=== PATIENT | male | born 1940 | race Caucasian/White ===

== ENCOUNTER → 2019-12-15 | Outpatient (CLI) | payer MEDICARE, OTHER ==
[~2019-12-15] MED LIST: ASPIRIN EC325 M1; CIPROFLOXACIN500 M1 PO; LIPITOR10 MG
--- NOTE | 2019-12-15 11:23 | 2DMMODE ---
[place] [address] 2 D/M-MODE ECHOCARDIOGRAM Name: AREN EMERSON Room: [facility]#: [id number] Admission: 12/15/19 Attend Phys: Froylan Lopez, Discharge: Date of : 40 Date of Service: 12/15/19 1122 Report #: [id number] THIS REPORT FOR: cc: Kaycee Lozano MD, Jayne MD Blick,Arnav Voss MD [facility] ~ THIS REPORT FOR: //name// APPROVED REPORT Study performed: 12/15/2019 08:57:44 EXAM: Comprehensive 2D, Doppler, and color-flow Echocardiogram Patient Location: Out-Patient BSA: 1.93 HR: 78 bpm BP: 130/60 mmHg Other Information Study Quality: Good Indications Aortic Valve Disease 2D Dimensions IVSd: 11.21 (7-11mm) LVOT Diam: 20.54 (18-24mm) LVDd: 47.72 mm PWd: 11.21 (7-11mm) Ascending Ao: 28.83 (22-36mm) LVDs: 33.32 (25-40mm) Aortic Root: 28.80 mm Volumes Left Atrial Volume (Systole) LA ESV Index: 21.90 mL/m2 Aortic Valve AoV Peak Toby.: 2.59 m/s AO Peak Gr.: 26.86 mmHg LVOT Max P.35 mmHg AO Mean Gr.: 14.89 mmHg LVOT Mean P.06 mmHg LVOT Max V: 1.04 m/s AO V2 VTI: 58.07 cm LVOT Mean V: 0.66 m/s FAISAL (VTI): 1.28 cm2 LVOT V1 VTI: 22.35 [place] [address] 2 D/M-MODE ECHOCARDIOGRAM Name: AREN EMERSON Room: [facility]#: [id number] Admission: 12/15/19 Attend Phys: Froylan Lopez, Discharge: Date of : 40 Date of Service: 12/15/19 1122 Report #: [id number] Mitral Valve E/A Ratio: 0.79 MV Decel. Time: 265.21 ms MV E Max Toby.: 0.66 m/s MV PHT: 76.91 ms MVA (PHT): 2.86 cm2 TDI E/Lateral E': 6.00 E/Medial E': 9.43 Medial E' Toby.: 0.07 m/s Lateral E' Toby.: 0.11 m/s Pulmonary Valve PV Peak Toby.: 1.33 m/s PV Peak Gr.: 7.03 mmHg Tricuspid Valve RAP Estimate: 5.00 mmHg TR Peak Gr.: 25.03 mmHg RVSP: 30.03 mmHg PA Pressure: 30.03 mmHg Left Ventricle The left ventricle is normal size. There is global hypokinesis of the left ventricle. Mild concentric left ventricular hypertrophy. Left ventricular systolic function is borderline. LVEF is 45-50%. Grade I - abnormal relaxation pattern. Right Ventricle The right ventricle is normal size. The right ventricular systolic function is normal. Atria The left atrium size is normal. The right atrium size is normal. Aortic Valve Aortic valve is mildly calcified. Trace aortic regurgitation. Mild aortic stenosis. Mitral Valve The mitral valve is normal in structure. Mild mitral regurgitation. No evidence of mitral valve stenosis. Tricuspid Valve The tricuspid valve is normal in structure. [place] [address] 2 D/M-MODE ECHOCARDIOGRAM Name: AREN EMERSON Room: [facility]#: [id number] Admission: 12/15/19 Attend Phys: Froylan Lopez, Discharge: Date of : 40 Date of Service: 12/15/19 1122 Report #: [id number] Pulmonic Valve The pulmonary valve is normal in structure. trace pulmonic regurgitation. Great Vessels The aortic root is normal in size. IVC is normal in size and collapses >50% with inspiration. Pericardium There is no pericardial effusion. <Conclusion> Mild concentric left ventricular hypertrophy. LVEF is 45-50%. Mild aortic stenosis. Mild mitral regurgitation. <ELECTRONICALLY SIGNED> By: Arnav Aleman MD, FACC 12/15/19 112 21 21 Arnav Aleman MD, FACC /INF
--- NOTE | 2019-12-15 18:32 | CARDNUC ---
[place] [address] CARDIAC NUCLEAR IMAGING REPORT Name: AREN EMERSON Room: [facility]#: [id number] Admission: 12/15/19 Attend Phys: Froylan Lopez, Discharge: Date of : 40 Date of Service: 12/15/19 1831 Report #: [id number] THIS REPORT FOR: cc: Kaycee Lozano MD, Jayne MD Biggs, F. Douglas MD [facility] ~ THIS REPORT FOR: //name// APPROVED REPORT Imaging Protocol: Rest Tc-99m/Stress Tc-99m 1 day Study performed: 12/15/2019 09:45:00 Indication: Dyspnea, Bradycardia, Bigeminy, Dizziness. Patient Location: Out-Patient Stress Tech: Brea Glover Stress Nurse: Mariam Cabrera RN NM Tech:JAY Montalvo Ht: 5 ft 10 in Wt: 180 lbs BSA: 2.00 m2 BMI: 25.82 Medical History Medical History: CAD s/p CABG, Aortic Stenosis, Bradycardia, PVC's, Bigeminy, Dizziness, Dyspnea, Fatigue, Former Smoker, Hyperlipidemia, SOB, Valvular heart disease, Weakness. Medications: ASA 81 Mg, Atorvastatin. Allergies: No known drug allergies Cardiac Risk Factors: Age, FHX of CAD, Hyperlipidemia, SOB, Past Smoker, Bigeminy, Aortic Stenosis, Bradycardia, PVC's, HX CABG. Previous Cardiac Procedures: CABG Pretest Chest Pain Characteristics: No chest pain Exercise History: Sedentary Physical Disabilities: Bigeminy, Murmur, generalized weakness/fatigue. Meds Held (24 hrs): None Resting Data Rest SPECT myocardial perfusion imaging was performed in supine position 30 minutes following the intravenous injection of 11.2 mCi of Tc-99m Sestamibi. Time of rest injection: 1000 Date: 12/15/2019 The images were gated to evaluate regional [place] [address] CARDIAC NUCLEAR IMAGING REPORT Name: AREN EMERSON Ricky Room: [facility]#: [id number] Admission: 12/15/19 Attend Phys: Froylan Lopez, Discharge: Date of : 40 Date of Service: 12/15/19 1831 Report #: [id number] left ventricular ejection fraction. Administration Route: IV Administration Site: Right AC Pharmacologic Stress Pharmacologic stress test was performed by injecting Regadenoson 0.4 mg IV push over 10-15 seconds immediately followed by the intravenous injection of 34.2 mCi of Tc-99m Sestamibi. Time of stress injection: 1135 Date: 12/15/2019 Administration Route: IV Administration Site: Right AC Gated Stress SPECT was performed 40 minutes after stress injection. The images were gated to evaluate regional wall motion and calculate left ventricular ejection fraction. Prone imaging was performed. Stress Test Details Stress Test: Pharmacologic stress testing performed using 0.4 mg of regadenoson per 5 mL given IV over 10 seconds. Reason for pharmacologic stress test: Murmur, generalized weakness/fatigue, dizziness.. HR Max Heart Rate (APMHR): 141 bpm Resting HR: 61 bpm Target HR (85% APMHR): 119 bpm Max HR Achieved: 92 bpm % of APMHR: 65 Recovery HR: 76 bpm HR response to stress: Normal HR response to stress BP Resting BP: 139/89 mmHg Max BP: 114/54 mmHg Recovery BP: 148/68 mmHg BP response to stress: Normal blood pressure response to stress. ECG Resting ECG: Sinus Rhythm with ventricular bigeminy Stress ECG: Sinus Rhythm with ventricular bigeminy ST Change: None Maximum ST Deviation: 0 mm Arrhythmia: VPC's Recovery ECG: sinus rhythm with ventricular bigeminy Recovery ST Change: None Recovery ST Deviation: 0 mm Recovery Arrhythmia: [place] [address] CARDIAC NUCLEAR IMAGING REPORT Name: AREN EMERSON Room: [facility]#: [id number] Admission: 12/15/19 Attend Phys: Froylan Lopez, Discharge: Date of : 40 Date of Service: 12/15/19 1831 Report #: [id number] Clinical Reason for Termination: Completed protocol Stress Symptoms: Chest Pressure 2/10, leg fatigue, SOA, Head Pressure, Nausea, Neck Stiffness. Exercise duration: 00 min 00 sec Exercise capacity: 1.00 METs Nurse Comments A 79 year old male presented for a sitting Lexiscan r/t increased fatigue, dyspnea, bradycardia, bigeminy and dizziness. Test well tolerated. Recovery unremarkable with PO caffeine, effective. Patient was escorted by staff to Nuclear Medicine for imaging. Patient was stable and stated he felt good at that time. Stress ECG Conclusion Normal hemodynamic response to pharmacologic stress. Non-diagnostic pharmacologic stress due to failure to attain target HR. Study Quality Study: Good Artifact: No artifact No artifact Lung Uptake: Normal Study Data At rest, the left ventricular ejection fraction was 62%.. Post stress, the left ventricular ejection was 49%.. SSS: 11 SRS: 8 SDS: 3 TID = 1.11. Perfusion The resting study demonstrates a small mild lateral basilar defect. The post stress images demonstrates a moderate in size and mild intensity lateral defect is small in size and mildly severe intensity septal defect and a small mild inferior defect. The prone images demonstrate a small moderate to moderately severe septal defect. These images demonstrate a small moderate to moderately severe area of septal ischemia. Images were reviewed using [employer] E[employer]t [employer] App. Wall Motion Normal left ventricular wall motion. Note however that the left echo ejection fraction did drop following stress. [address] [address] CARDIAC NUCLEAR IMAGING REPORT Name: KIAREN W Room: [facility] JONATAN Boyer#: [id number] Admission: 12/15/19 Attend Phys: Froylan Lopez, Discharge: Date of : 40 Date of Service: 12/15/19 1831 Report #: [id number] Nuclear Conclusion ECG Findings: non-diagnostic Clinical Findings: equivocal Nuclear Findings: positive for ischemia Exercise Capacity: not assessed Left Ventricular Function: normal Risk Study: moderate The Lexiscan Cardiolite stress test demonstrates a small area of moderate to moderately severe septal ischemia. Additionally the left echo ejection fraction dropped following stress significantly. <Conclusion> Normal hemodynamic response to pharmacologic stress. Non-diagnostic pharmacologic stress due to failure to attain target HR. <ELECTRONICALLY SIGNED> By: Debora Jaramillo MD, FACC 12/15/191830 30 30 Debora Jaramillo MD, FACC /INF
== END ==
LOC: M.CRD 11-18 14:26 → M.NUC 12-23 08:00
DX: I08.3 Combined rheumatic disorders of mitral, aortic and tricuspid valves (principal); I25.10 Atherosclerotic heart disease of native coronary artery without angina pectoris; E78.5 Hyperlipidemia, unspecified; Z87.891 Personal history of nicotine dependence; Z79.899 Other long term (current) drug therapy; Z88.8 Allergy status to other drugs, medicaments and biological substances

== ENCOUNTER 2019-12-26 09:36 | Inpatient (IN) | payer MEDICARE, OTHER ==
[2019-12-26] VITALS (16 sets, daily range): BP systolic 93–148; BP diastolic 50–90
[~2019-12-26] VITALS: Ht 175.3 cm; Wt 73.5 kg
[~2019-12-26 09:36] MED LIST changes: -ASPIRIN EC325 M1; +ASPIRIN EC325 M1 PO; -LIPITOR10 MG; +LIPITOR10 MG PO
[2019-12-26] MEDS ORDERED: ZANTAC 150MG T150 M1 PO (09:45)
[2019-12-26 10:03] LABS: ABSOLUTE BASOPHILS 0.1 thou/uL (0.0-0.2); ABSOLUTE EOSINOPHILS 0.1 thou/uL (0.0-0.7); ABSOLUTE MONOCYTES 0.4 thou/uL (0.0-1.2); ABSOLUTE NEUTROPHILS 3.8 thou/uL (1.6-8.1); BASOPHILS 1.3 %; EOSINOPHILS 1.5 %; HEMATOCRIT 44.5 % (42.0-52.0); HEMOGLOBIN 15.7 gm/dL (14.0-18.0); LYMPHOCYTES 19.1 %; MCH 34.4 pg (26.0-34.0); MCHC 35.2 g/dL (28.0-37.0); MCV 97.7 fL (80.0-100.0); MONOCYTES 7.5 %; MPV 8.1 fl. (7.2-11.1); NUCLEATED RBCS 0 /100WBC; PLATELET COUNT* 144 thou/uL (150-400); POLYS 70.6 %; RBC 4.55 mil/uL (4.50-6.00); RDW-CV 12.5 % (10.5-14.5); WBC 5.4 thou/uL (4.0-11.0)
[2019-12-26 10:11] LABS: CALCIUM 8.5 mg/dL (8.5-10.1); CREATININE 0.9 mg/dL (0.6-1.3); POTASSIUM 4.3 mmol/L (3.5-5.1)
[2019-12-26 10:14] LABS: PROTIME 10.7 Seconds (9.20-11.50)
[2019-12-26 10:23] LABS: ALBUMIN 3.5 g/dL (3.4-5.0); TOTAL BILIRUBIN 0.7 mg/dL (<0.1-1.0); TOTAL PROTEIN 6.3 g/dL (6.4-8.2)
[2019-12-27] VITALS (15 sets, daily range): BP systolic 99–135; BP diastolic 27–63
[2019-12-27] MEDS ORDERED: LOPERAMIDE 2 MG2 M1 PO (21:46)
[2019-12-28] VITALS: BP 132/68
[2019-12-28 04:00] VITALS: BP 113/77
[2019-12-28 06:25] LABS: CALCIUM 8.3 mg/dL (8.5-10.1); CREATININE 1.2 mg/dL (0.6-1.3); MAGNESIUM 2.2 mg/dL (1.8-2.4); POTASSIUM 4.3 mmol/L (3.5-5.1)
[2019-12-28 12:00] VITALS: BP 146/56
[2019-12-28 12:22] LABS: APTT 23.7 Seconds (25.0-31.3); PROTIME 10.6 Seconds (9.20-11.50)
[2019-12-28 12:25] LABS: ANION GAP 8 mmol/L (7-16); BUN 19 mg/dL (7-18); CALCIUM 8.2 mg/dL (8.5-10.1); CHLORIDE 106 mmol/L (98-107); CHOLESTEROL 161 mg/dL (<200); CO2 26 mmol/L (21-32); CREATININE 1.2 mg/dL (0.6-1.3); GLUCOSE 110 mg/dL (70-99); HDL CHOLESTEROL 55 mg/dL (>40); LDL CHOLESTEROL 80 mg/dL (<100); POTASSIUM 4.1 mmol/L (3.5-5.1); SODIUM 140 mmol/L (136-145); TC:HDL 2.9 Ratio (Not establshd); TRIGLYCERIDE 131 mg/dL (<150); VLDL 26 mg/dL (<40)
[2019-12-28 13:13] LABS: SERUM ASSESSMENT Clear
[2019-12-28 16:00] VITALS: BP 131/58
[2019-12-29] VITALS (21 sets, daily range): BP systolic 119–184; BP diastolic 50–114
[2019-12-30 00:28] VITALS: BP 134/63
[2019-12-30 05:03] VITALS: BP 109/66
[2019-12-30] MEDS ORDERED: EFFIENT10 MG PO (09:36)
[2019-12-30] MEDS ORDERED: TOPROL XL50 MG PO (09:36)
[2019-12-30 11:09] VITALS: BP 140/96
[2019-12-30] MEDS ORDERED: NITROSTAT0.4 M1 SUBLING (12:01)
--- NOTE | 2020-01-01 11:26 | CARD ---
[address] [address] CARDIAC CATH REPORT Name: KIAREN Ricky Room: [address] IN [facility]#: [id number] Admission: 12/26/19 Attend Phys: Jtet Hogue MD Discharge: 12/30/19 Date of : 40 Report #: [id number] THIS REPORT FOR: //name// cc: Kaycee Lozano MD, Jayne MD ~ THIS REPORT FOR: //name// APPROVED REPORT Study performed: 12/29/2019 09:33:51 Patient Details Patient Status: In-Patient Room #: 214 The patient is a 79 year-old male Event Personnel Froylan Lopez Cocoa Mill Operator, Miguel Brooks Brick Unloader Tender, Nia Veras RN Commercial Construction Superintendent, Jett Duarte SHANK RANDER Scrub, Shirley Galeas RTR Monitor Procedures Performed Art Access - R femoral artery, Left Heart Cath Coronaries, Bypass Grafts, JANEL Revasc Graft Single CIRC, Hemostasis w/ Angioseal Indication Positive stress test Risk Factors Hypercholesterolemia, Hypertension Previous Procedures/Diagnoses Previous CABG Admission/Lab Medications/Medications given during procedure Oxygen Nasal cannula 2 l per min, Lidocaine Subcut 18 ml, Midazolam (Versed) IV 1 mg, Fentanyl IV 25 mcg, Angiomax IV bolus 11 ml, Angiomax Drip IV 26 ml per hr, Nitroglycerin IC 200 mcg, Effient PO 60 mg, Aspirin PO 81 mg Procedure Narrative The patient was brought electively to the Cardiac Catheterization Laboratory and was prepped and draped in a sterile manner. The right femoral groin was infiltrated with 2% Lidocaine subcutaneous anesthesia. A 6F [place] sheath was [place] [address] CARDIAC CATH REPORT Name: KIAREN Ricky Room: [address]#: [id number] Admission: 12/26/19 Attend Phys: Jett Hogue MD Discharge: 12/30/19 Date of : 40 Report #: [id number]. Coronary angiography was performed using coronary diagnostic catheters. The right coronary system was accessed and visualized with a 6F 3DRC catheter. The left coronary system was accessed and visualized with a 6F JL4 catheter. The left ventricle was accessed and visualized with a 6F Pigtail catheter. Left ventricular/Aortic Valve gradient assessed via catheter pullback. Left ventriculogram was performed in IZAGUIRRE projection. Pre-demployment femoral angiogram was performed . Closure device was deployed with a 6 Fr Angioseal. The patient tolerated the procedure well and there were no complications associated with the procedure. There was no hematoma. The Saphenous vein grafts were visualized with a 6F JR4 catheter. The RAYMOND graft was visualized with a 6F IM catheter. Intraoperative Conscious Sedation Sedation start time: 09:44 Case end Time: 10:31 Fentanyl 25 mcg Versed 1 mg Fluoro Time: 16.1 minutes Dose: DAP 115363 cGycm2 1828 mGy Contrast Type and Amount: Visipaque 305 ml Coronary Angiography The patient's coronary anatomy is left dominant. [place] Artery Percent Stenosis #1 widely patent RAYMOND graft to a diagonal and the LAD #2 patent saphenous vein graft to the dominant circumflex with 80% proximal graft narrowing Diagnostic Cath Left Main 90% distal narrowing LAD 100% proximal occlusion Circumflex 100% proximal occlusion Right Coronary 100% proximal occlusion of this nondominant vessel Hemodynamics The aortic pressure is 128/45 mmHg with a mean of 70 mmHg. The left ventricular pressure is 141/1 mmHg with a mean of mmHg. The left ventricular end diastolic pressure is 13 mmHg. PCI Technique Lesion Anticoagulation was achieved with Angiomax. Patient was preloaded with Angiomax IV bolus 11 ml. Percutaneous [place] [address] CARDIAC CATH REPORT Name: AREN EMERSON Room: [address]#: [id number] Admission: 12/26/19 Attend Phys: Jett Hogue MD Discharge: 12/30/19 Date of : 40 Report #: [id number] performed on the Ostium of Saphenous vein graft to Circumflex. The lesion stenosis prior to intervention was 80% with ESTEVAN 3 flow. A 6F JR 4.0 Guide Catheter was used to engage the ostium. A BMW 190cm Interventional Guidewire was used to cross the lesion. BALLOON DILATION A Balloon catheter Mini Trek RX 2.0 X 12 was inserted and inflated up to 8.00atm for 6seconds. Additional Inflation: 15.00atm for 7seconds. Additional Inflation: 16.00atm for 9seconds. STENT DEPLOYMENT A drug-eluting stent Xience Carolyne 3.5X12mm was inserted and inflated up to 15.00atm for 7seconds. Additional Inflation: 16.00atm for 9seconds. Final angiography reveals 0 % stenosis with ESTEVAN 3 flow. Conclusion #1 Severe coronary artery disease characterized by the following: A 90% distal left main coronary artery narrowing B1 100% proximal LAD occlusion C 100% proximal circumflex proximal occlusion D1 100% occlusion of the proximal portion and nondominant right coronary artery #2 graft study characterized by the following: A widely patent RAMYOND graft to prominent diagonal and the mid LAD B patent saphenous vein graft to the distal dominant circumflex with 80% proximal graft narrowing #3 normal left ventricular systolic function, estimated ejection fraction 65% #4 normal left-sided hemodynamics study #5 successful percutaneous coronary intervention with deployment of drug-eluting stent at the site of 80% narrowing in the proximal portion of the graft to the circumflex with 0% residual narrowing and ESTEVAN 3 flow [place] [address] CARDIAC CATH REPORT Name: AREN EMERSON Room: [address]#: [id number] Admission: 12/26/19 Attend Phys: Jett Hogue MD Discharge: 12/30/19 Date of : 40 Report #: [id number] Recommendations Cardiac Risk Reduction Program Aggressive Medical Therapy Medications Administered Aspirin (any) Ticagrelor Diagnostic Cath Approved by: Froylan Lopez MD Date/Time: 01/01/2020 11:24:44 <ELECTRONICALLY SIGNED> By: Miguel Brooks MD, FAC 01/01/20 1125 1125 1125Miguel Brooks MD, FAC /INF
--- NOTE | 2020-01-15 14:50 | EKG ---
[place] [address] ELECTROCARDIOGRAM REPORT Name: AREN EMERSON Room: [address] IN [facility]#: [id number] Admission: 12/26/19 Attend Phys: Jett Hogue, Discharge: 12/30/19 Date of : 40 Date of Service: 12/26/19 0942 Report #: [id number] THIS REPORT FOR: //name// [facility] ED Test Date: 2019-12-26 Test Time: 09:42:11 Pat Name: AREN EMERSON Department: Room: [facility] Gender: M On Site Manager: TP : 1940 Requested By: Edilia Salazar Order Number: [id number] MD: Maximino Jaramillo Measurements Intervals [place] Rate: 92 P: 67 [place]: 172 QRS: -51 QRSD: 99 T: 86 QT: 399 QTc: 494 Interpretive Statements Sinus rhythm Ventricular bigeminy Left atrial enlargement Left axis deviation Abnormal R-wave progression, late transition Nonspecific T abnormalities, lateral leads Compared to ECG 11/23/2012 11:08:11 Ventricular premature complex(es) now present Atrial abnormality now present Left-axis deviation now present T-wave abnormality now present Sinus bradycardia no longer present Right-axis deviation no longer present Electronically Signed On 12-27-2019 15:04:18 BIN PACKER by Maximino Jaramillo [email or web address] <ELECTRONICALLY SIGNED> By: Debora Jaramillo MD, [facility] 12/27/19 1504 0942 0942 Debora Jaramillo MD, [facility] /EPI
--- NOTE | 2020-01-15 14:51 | EKG ---
[place] [address] ELECTROCARDIOGRAM REPORT Name: AREN EMERSON Room: [address] IN M.R.#: [id number] Admission: 12/26/19 Attend Phys: Jett Hogue, Discharge: 12/30/19 Date of : 40 Date of Service: 12/27/19 2223 Report #: [id number] THIS REPORT FOR: //name// [facility] Test Date: 2019-12-27 Test Time: 22:23:41 Pat Name: AREN EMERSON Department: Room: [address] Gender: M Food Editor: JY : 1940 Requested By: Doni Li Order Number: [id number] Reading MD: Miguel Brooks Measurements Intervals [employer] [employer] Rate: 92 P: 32 [place]: 188 QRS: -29 QRSD: 116 T: 75 QT: 403 QTc: 499 Interpretive Statements Sinus rhythm Ventricular bigeminy Left atrial enlargement Nonspecific intraventricular conduction delay Low voltage, extremity leads Compared to ECG 12/26/2019 09:42:11 Low QRS voltage now present T-wave abnormality no longer present Electronically Signed On 12-28-2019 16:49:07 SURVEY AND MAPPING TECHNICIAN by Miguel Brooks [email or web address] <ELECTRONICALLY SIGNED> By: Miguel Brooks MD, FAC 12/28/19 1649 22 22 Miguel Brooks MD, [facility] /EPI
--- NOTE | 2020-01-15 14:52 | EKG ---
[place] [address] ELECTROCARDIOGRAM REPORT Name: AREN EMERSON Room: [address] IN M.R.#: [id number] Admission: 12/26/19 Attend Phys: Jett Hogue, Discharge: 12/30/19 Date of : 40 Date of Service: 12/29/19 1131 Report #: [id number] THIS REPORT FOR: //name// [facility] Test Date: 2019-12-29 Test Time: 11:31:21 Pat Name: AREN EMERSON Department: Room: [address] Gender: M Diagnostic Technician: : 1940 Requested By: Froylan Lopez Order Number: [id number] Reading MD: Miguel Brooks Measurements Intervals [place] Rate: 82 P: 72 [place]: 177 QRS: -42 QRSD: 99 T: 91 QT: 408 QTc: 477 Interpretive Statements Sinus rhythm Ventricular bigeminy Probable left atrial enlargement Left axis deviation Abnormal R-wave progression, late transition Compared to ECG 12/27/2019 22:23:41 Intraventricular conduction delay no longer present Electronically Signed On 12-29-2019 11:47:04 COLLATOR OPERATOR by Miguel Brooks [email or web address] <ELECTRONICALLY SIGNED> By: Miguel Brooks MD, FACC 12/29/19 1147 1131 1131 Miguel Brooks MD, FAC /EPI
--- NOTE | 2020-01-15 14:52 | EKG ---
[place] [address] ELECTROCARDIOGRAM REPORT Name: AREN EMERSON Room: [address] IN M.R.#: [id number] Admission: 12/26/19 Attend Phys: Jett Hogue, Discharge: 12/30/19 Date of : 40 Date of Service: 12/30/1913 Report #: [id number] THIS REPORT FOR: //name// [facility] Test Date: 2019-12-30 Test Time: 09:13:01 Pat Name: AREN EMERSON Department: Room: [address] Gender: M Natural Resources Engineer: : 1940 Requested By: Froylan Lopez Order Number: [id number] Reading MD: Froylan Lopez Measurements Intervals [place] Rate: 93 P: 59 [place]: 204 QRS: -44 QRSD: 99 T: 82 QT: 398 QTc: 496 Interpretive Statements Sinus rhythm Ventricular bigeminy Probable left atrial enlargement Left axis deviation Abnormal R-wave progression, late transition Compared to ECG 12/29/2019 11:31:21 No significant changes Electronically Signed On 12-31-2019 11:10:09 INDUSTRIAL LABORER by Froylan Lopez [email or web address] <ELECTRONICALLY SIGNED> By: Froylan Lopez MD, FACC 12/31/19 1110 2 2 Froylan Lopez MD, FACC /EPI
--- NOTE | 2020-01-19 12:51 | CON ---
[address] [address] CONSULTATION Name: AREN EMERSON Room: [address] [place] .R.#: [id number] Admission: 12/26/19 Attend Phys: Jett Hogue MD Discharge: 12/30/19 Date of : 40 Report #: [id number] THIS REPORT FOR: //name// cc: Kaycee Lozano MD, Jayne MD ~ THIS REPORT FOR: //name// CC: Jett Lopez CARDIOLOGY CONSULTATION HISTORY OF PRESENT ILLNESS: I was asked by the ER physician, Dr. Burton, to see this 79-year-old white male in Cardiology consultation for evaluation of ventricular premature beats, shortness of breath, lightheadedness, head pressure, hyperlipidemia, coronary artery disease, previous bypass graft surgery, moderate aortic stenosis and an abnormal stress test. This man came to the Emergency Room today because of the progressive worsening of lightheadedness or dizziness or pressure in his head as he describes it, that have been coming on for a year. The discomfort is a 5 on a scale of 10. Additionally, he has had some presyncopal spells with this, but he has never had syncope. He has also had shortness of breath that comes and goes. Sometimes he has dyspnea on exertion, but sometimes he is short of breath at rest. He does not seem to have orthopnea. Occasionally, has paroxysmal nocturnal dyspnea. He has not had edema. He does not have a history of congestive heart failure. His chest x-ray on admission did not show congestive heart failure and he did not get an NT-proBNP. He had 2 negative troponins at 0.06. Principal shortness of breath is in fact dyspnea on exertion. He has not had chest pain or angina. Coronary risk factors include a past history of smoking, but he quit 40 years ago. He does have hypercholesterolemia, is on atorvastatin. He does not have diabetes. He does not have high blood pressure. There is a strong family history of coronary artery disease. He has not had renal disease or peripheral vascular disease. He apparently has had a stroke in the past or at least a mini stroke. He is unaware of any bruits. He does not have claudication or open or nonhealing wounds. He had open heart surgery. There was a triple bypass in 1998 at [facility]. He does have a history of hay fever, but he has no other allergens. He is followed by Dr. Lopez, who had scheduled him for cardiac catheterization because of the abnormal stress test that was done last week. He was scheduled for catheterization on Saturday. He does have quite a bit of ventricular ectopy on his EKGs and on the monitor. He became concerned this morning when he was checking his heart rate with a device that checks heart rate. I suspect it maybe his blood pressure monitoring device and his heart rate was in the 20s, but he does have quite a bit of ventricular ectopy and he often has ventricular bigeminy. His blood pressures, however, since he has been here have been fine. [address] [address] CONSULTATION Name: AREN EMERSON Ricky [address] [id number] Admission: 12/26/19 Attend Phys: Jett Hogue MD Discharge: 12/30/19 Date of : 40 Report #: [id number] MEDICATIONS: His home medications include atorvastatin as well as aspirin. His atorvastatin dose is 10 mg daily, aspirin 81 mg daily, takes a variety of kvzv-[id number]-[id number] vitamins and supplements and herbals, takes Imodium p.r.n., Zantac 150 mg b.i.d. REVIEW OF SYSTEMS: Positive for seasonal allergies, the above symptoms that we mentioned previously. He wears glasses. He has some decreased hearing and wears dentures. Otherwise, his review of systems is negative for some 40 different complaints in 14 different system categories. Please see review of system form for details and negative review of system. SOCIAL HISTORY: He is , does not smoke, drink or use illegal drugs. PHYSICAL EXAMINATION: GENERAL: He presents as well-developed, well-nourished white male in no acute distress. VITAL SIGNS: His pulse was 77, blood pressure is 135/56, respirations were 18 and regular. He is clinically afebrile and his O2 sat was 98%. HEENT: His head was atraumatic. Eyes clear. NECK: Supple. There is no jugular venous distention or hepatojugular reflux. Thyroid is not enlarged. There is no adenopathy. SKIN: Warm and dry. Mucous membranes are moist. LUNGS: Clear to auscultation and percussion. HEART: Revealed normal first and second heart sound. There is soft S4. There is no S3. There is a 2/6 systolic ejection murmur heard in the aortic area. The aortic second sound was easily heard. PMI is nondisplaced. The rhythm was irregularly irregular with frequent VPCs. ABDOMEN: Soft, flat and nontender. No palpable masses, no organomegaly. EXTREMITIES: Reveal no cyanosis, clubbing or edema. NEUROLOGIC: The patient mentated normally, talked normally, moved all extremities normally. IMPRESSION: 1. Ventricular premature contractions and bigeminy. 2. Shortness of breath, possibly an ischemic or anginal equivalent. 3. Head pressure of uncertain cause. 5. Hyperlipidemia. 6. Coronary artery disease. 7. Status post coronary artery bypass graft surgery. 8. Moderate aortic stenosis. 9. Abnormal nuclear stress test. RECOMMENDATION: I would simply observe him at this point and keep him for cardiac catheterization. Dr. Lopez may want to [place] [address] CONSULTATION Name: KIAREN Ricky Room: [address]#: [id number] Admission: 12/26/19 Attend Phys: Jett Hogue MD Discharge: 12/30/19 Date of : 40 Report #: [id number] Thank you very much for asking me to see the patient. If there are any questions, please feel free to contact me. <ELECTRONICALLY SIGNED> By: Arnav Aleman MD, FACC 01/19/20 1251 [id number]. Maximino Jaramillo MD, FACC /nt
== END 2019-12-30 12:45 | disposition home or self-care (01) | DRG 247 ==
LOC: M.ERS 09:36 → M.2W 13:08 → M.TBA-ER 13:08 → M.ICU 14:33 → M.2W 12-27 12:32
PROVIDERS: Internal Medicine Cardiovascular Disease; Personal Emergency Response Attendant; ADMIT Internal Medicine
PROC: B215YZZ Fluoroscopy of Left Heart using Other Contrast (ICD-10-PCS; principal; 2019-12-29)
PROC: B218YZZ Fluoroscopy of Left Internal Mammary Bypass Graft using Other Contrast (ICD-10-PCS; principal; 2019-12-29)
PROC: B211YZZ Fluoroscopy of Multiple Coronary Arteries using Other Contrast (ICD-10-PCS; principal; 2019-12-29)
PROC: 4A023N7 Measurement of Cardiac Sampling and Pressure, Left Heart, Percutaneous Approach (ICD-10-PCS; principal; 2019-12-29)
PROC: 027034Z Dilation of Coronary Artery, One Artery with Drug-eluting Intraluminal Device, Percutaneous Approach (ICD-10-PCS; principal; 2019-12-29)
PROC: B213YZZ Fluoroscopy of Multiple Coronary Artery Bypass Grafts using Other Contrast (ICD-10-PCS; principal; 2019-12-29)
DX: I49.5 Sick sinus syndrome (principal); I50.42 Chronic combined systolic (congestive) and diastolic (congestive) heart failure; I25.10 Atherosclerotic heart disease of native coronary artery without angina pectoris; R00.8 Other abnormalities of heart beat; I45.9 Conduction disorder, unspecified; E78.5 Hyperlipidemia, unspecified; E78.00 Pure hypercholesterolemia, unspecified; I49.3 Ventricular premature depolarization; I25.82 Chronic total occlusion of coronary artery; I08.0 Rheumatic disorders of both mitral and aortic valves; Z95.1 Presence of aortocoronary bypass graft; Z79.899 Other long term (current) drug therapy; Z82.49 Family history of ischemic heart disease and other diseases of the circulatory system; Z79.82 Long term (current) use of aspirin; Z95.5 Presence of coronary angioplasty implant and graft

== ENCOUNTER → 2021-06-14 | Outpatient (CLI) | payer MEDICARE, OTHER ==
[~2021-06-14] MED LIST changes: +EFFIENT10 MG PO; +LOPERAMIDE 2 MG2 M1 PO; +NITROSTAT0.4 M1 SUBLING; +TOPROL XL50 MG PO; +ZANTAC 150MG T150 M1 PO
--- NOTE | 2021-06-14 11:15 | 2DMMODE ---
[place] [address] 2 D/M-MODE ECHOCARDIOGRAM Name: AREN EMERSON Room: [facility]#: [id number] Admission: 06/14/21 Attend Phys: Anna Marie Claire RN Discharge: Date of : 40 Date of Service: 06/14/21 1115 Report #: [id number] THIS REPORT FOR: cc: Kaycee Lozano MD, Jayne MD Blick, David R. MD [facility] ~ APPROVED REPORT Study performed: 06/14/2021 09:13:23 EXAM: Comprehensive 2D, Doppler, and color-flow Echocardiogram Patient Location: Out-Patient BSA: 1.85 HR: 67 bpm BP: 110/70 mmHg Other Information Study Quality: Good Indications CAD 2D Dimensions IVSd: 11.94 (7-11mm) LVOT Diam: 20.02 (18-24mm) LVDd: 45.77 mm PWd: 7.63 (7-11mm) Ascending Ao: 28.54 (22-36mm) LVDs: 30.97 (25-40mm) Aortic Root: 28.90 mm Volumes Left Atrial Volume (Systole) LA ESV Index: 19.30 mL/m2 Aortic Valve AoV Peak Toby.: 3.05 m/s AO Peak Gr.: 37.12 mmHg LVOT Max P.98 mmHg AO Mean Gr.: 21.15 mmHg LVOT Mean P.74 mmHg LVOT Max V: 1.00 m/s AO V2 VTI: 73.51 cm LVOT Mean V: 0.60 m/s FAISAL (VTI): 1.01 cm2 LVOT V1 VTI: 23.59 cm Mitral Valve E/A Ratio: 0.92 [place] [address] 2 D/M-MODE ECHOCARDIOGRAM Name: AREN EMERSON Room: [facility]#: [id number] Admission: 06/14/21 Attend Phys: Anna Marie Claire RN Discharge: Date of : 40 Date of Service: 06/14/21 1115 Report #: [id number] MV Decel. Time: 292.14 ms MV E Max Toby.: 0.61 m/s MV PHT: 84.72 ms MVA (PHT): 2.60 cm2 TDI E/Lateral E': 6.10 E/Medial E': 7.63 Medial E' Toby.: 0.08 m/s Lateral E' Toby.: 0.10 m/s Pulmonary Valve PV Peak Toby.: 1.38 m/s PV Peak Gr.: 7.63 mmHg Tricuspid Valve RAP Estimate: 5.00 mmHg TR Peak Gr.: 21.12 mmHg RVSP: 26.12 mmHg PA Pressure: 26.12 mmHg Left Ventricle The left ventricle is normal size. There is normal LV segmental wall motion. There is normal left ventricular wall thickness. Left ventricular systolic function is borderline. LVEF is 50-55%. Grade I - abnormal relaxation pattern. Right Ventricle The right ventricle is normal size. The right ventricular systolic function is normal. Atria The left atrium size is normal. The right atrium size is normal. Aortic Valve Aortic valve is calcified. No aortic regurgitation is present. moderate aortic stenosis. Mitral Valve The mitral valve is normal in structure. Mild mitral regurgitation. No evidence of mitral valve stenosis. Tricuspid Valve The tricuspid valve is normal in structure. Mild tricuspid regurgitation estimated pa pressure 35 mm Hg Pulmonic Valve The pulmonary valve is normal in [place] [address] 2 D/M-MODE ECHOCARDIOGRAM Name: AREN EMERSON Room: [facility]#: [id number] Admission: 06/14/21 Attend Phys: Anna Marie Claire RN Discharge: Date of : 40 Date of Service: 06/14/21 1115 Report #: [id number] regurgitation. Great Vessels The aortic root is normal in size. IVC is normal in size and collapses >50% with inspiration. Pericardium There is no pericardial effusion. <Conclusion> LVEF is 50-55%. moderate aortic stenosis. Mild mitral regurgitation. Mild tricuspid regurgitation estimated pa pressure 35 mm Hg <ELECTRONICALLY SIGNED> By: Arnav Aleman MD, [facility] 06/14/21 1115 1115 1115 Arnav Aleman MD, [facility] /INF
== END ==
LOC: M.CRD 09:00
PROVIDERS: ATTEND Registered Nurse
DX: I08.8 Other rheumatic multiple valve diseases (principal); I25.10 Atherosclerotic heart disease of native coronary artery without angina pectoris

== ENCOUNTER → 2021-08-23 | Outpatient (CLI) | payer MEDICARE, OTHER ==
[2021-08-23 11:22] LABS: CHOLESTEROL 163 mg/dL (<200); HDL CHOLESTEROL 65 mg/dL (>40); LDL CHOLESTEROL 83 mg/dL (<100); SERUM ASSESSMENT Clear; TC:HDL 2.5 Ratio (Not establshd); TRIGLYCERIDE 78 mg/dL (<150); VLDL 16 mg/dL (<40)
== END ==
LOC: M.ULTRA 10:06
PROVIDERS: ATTEND Internal Medicine Cardiovascular Disease
DX: I65.23 Occlusion and stenosis of bilateral carotid arteries (principal); R68.89 Other general symptoms and signs; E78.2 Mixed hyperlipidemia